=== PATIENT | female | born 1965 | race Caucasian/White ===

== ENCOUNTER 2019-01-05 21:13 | Inpatient (IN) | payer OTHER, MEDICAID ==
[2019-01-05] MEDS ORDERED: NS 2,100 ML IV ONE (21:22)
--- NOTE | 2019-01-05 21:22 | EDPHY ---
H & P Time Seen by Provider: 01/05/19 21:13 HPI/ROS: CHIEF COMPLAINT: Altered mental status HISTORY OF PRESENT ILLNESS: 54-year-old woman resident at [facility] for schizoaffective disorder. She was noted to have a seizure earlier today. She was diagnosed with the urinary tract infection yesterday. She arrives because over the past 2 hr her mental status is declined so she is really very sleepy. Patient has no complaints on arrival but further review of systems and history is unable to be completed because she is so sleepy and is difficult to arouse and difficult to get the answer questions. PAST MEDICAL HISTORY: From [facility] notes include irritable bowel, seizure disorder, hypothyroid, sciatica. Asthma, dementia, schizoaffective disorder, reflux disease, restless leg. Spinal stenosis, chronic pain Social history: Nursing facility resident General Appearance: Sleepy, will open eyes to voice. No spontaneous vocalizations. Eyes: No scleral icterus. Pupils reactive to light. ENT, Mouth: Dry mucous membranes. Respiratory: Normal respiratory effort, breath sounds equal, lungs are clear to auscultation. Cardiovascular: Regular rate and rhythm. Gastrointestinal: Abdomen is soft and non tender. Neurological: Face symmetric, patient does have spontaneous movement in all 4 extremities. She will withdraw to pain. She will answer questions with 2-3 word answers, has difficulty following commands. Skin: Warm and dry, no rashes. Musculoskeletal: No neck stiffness. Psychiatric: Unable because of altered mental status. Emergency Department course/MDM: Pre-hospital blood pressure 84 systolic. Oxygen saturation about 90% on room air. Differential considered including but not limited to seizure disorder the postictal state, infection or sepsis including pulmonary or urinary, other metabolic, medication related as she is on multiple medications. Plan for head CT, catheterized urine, chest x-ray, CBC chemistries. 2204: Urinalysis positive, likely altered mental status from urinary tract infection, possible pyelonephritis or urosepsis. IV fluids, IV antibiotics. Ceftriaxone 1 g IV and 30 mL/kilos IV normal saline fluid bolus. Did not develop hypotension and lactate is less than 2. CT head negative per Dr. Fink. Bon at 2212 to admit. Smoking Status: Never smoked Constitutional: Initial Vital Signs Temperature (C) 36.8 C 01/05/19 21:16 Heart Rate 91 01/05/19 21:16 Respiratory Rate 22 H 01/05/19 21:16 Blood Pressure 99/66 L 01/05/19 21:16 O2 Sat (%) 95 01/05/19 21:16 O2 Delivery Mode Nasal Cannula O2 (L/minute) 2 Allergies/Adverse Reactions: heparin Allergy (Verified 07/11/16 11:25) lithium Allergy (Verified 07/11/16 11:25) Penicillins Allergy (Verified 07/11/16 11:25) tetracycline Allergy (Verified 07/11/16 11:25) Home Medications: Medication Instructions Recorded Bisacodyl [Magic Bullet 10 mg] 10 mg [place] DAILY PRN 07/11/16 Fluticasone Propionate [24 Hour 2 spray EACHNARE BID 07/11/16 Allergy] Gabapentin [Neurontin 100 MG (*)] 200 mg PO BID 07/11/16 Haloperidol [HALOPERIDOL] 10 mg PO BID 07/11/16 LORazepam [Ativan (*)] 0.5 mg PO DAILY 07/11/16 Lactulose 30 ml PO BID 07/11/16 Levothyroxine [Synthroid 50 mcg 50 mcg PO DAILY06 07/11/16 (*)] Paliperidone Palmitate [Invega 234 mg IM Q21D 07/11/16 Sustenna (*)] Polyethylene Glycol 3350 [Miralax 17 gm PO DAILY 07/11/16 17 gm (*)] lamoTRIgine [Lamotrigine] 200 mg PO BID 07/11/16 Acetaminophen [Tylenol ES 500 mg 1,000 mg PO Q8H 01/05/19 (*)] Albuterol Sulfate [Albuterol 2 puffs IH Q4H PRN 01/05/19 Sulfate Hfa] Benztropine Mesylate 0.5 mg PO BID 01/05/19 Cefuroxime Axetil [Ceftin (*)] 250 mg PO BID 01/05/19 Cholecalciferol (Vitamin D3) 1,000 unit PO DAILY 01/05/19 [Vitamin D3] Clotrimazole/Betamethasone Dip 1 erik TP DAILY PRN 01/05/19 [Lotrisone Cream] Cyanocobalamin [Vitamin B12 (*)] 1,000 mcg PO DAILY 01/05/19 Desvenlafaxine [Desvenlafaxine ER] 50 mg PO DAILY 01/05/19 Etodolac [ETODOLAC] 200 mg PO DAILY 01/05/19 Etodolac [ETODOLAC] 400 mg PO BID 01/05/19 Mometasone/Formoterol [Dulera 100 2 puffs IH BID 01/05/19 Mcg/5 Mcg Inhaler] [place]-3 Acid Ethyl Esters 1 gm PO DAILY 01/05/19 Omeprazole 20 mg PO BID 01/05/19 Ondansetron [Zuplenz] 4 mg PO Q6H PRN 01/05/19 Oxymetazoline HCl [Sinus Relief] 2 puffs NS DAILY PRN 01/05/19 Propylene Glycol [Systane Balance] 1 drop EACHEYE TID 01/05/19 Saccharomyces Boulardii [FLORASTOR] 250 mg PO DAILY 01/05/19 Triamcinolone Acetonide [Triderm] 1 erik TP QID PRN 01/05/19 hydrOXYzine HCL [hydrOXYzine HCL 25 mg PO Q6 PRN 01/05/19 (RX)] Medical Decision Making - Diagnostics Imaging Results: Imaging Impressions Head CT 01/05/19 21:23 Impression: 1. No acute intracranial process. 2. Likely old white matter changes within the midbrain. Findings and recommendations discussed with VICKIE VEGA at 2205 hour, 2018. Chest X-Ray 01/05/19 21:24 Impression: Bibasilar subsegmental atelectasis and mild cardiomegaly. Imaging: Discussed imaging studies w/ call circuit worker Radiologist Critical Care Time: Critical care time spent by me, Dr. Vega, exclusively with the care of this patient was 45 minutes, exclusive of PA or GROUP SALES MANAGER time and exclusive of separate procedures. The organ system at risk was infectious and I ordered multiple diagnostics IV fluids IV antibiotics and supplemental oxygen to stabilize the patient and prevent worsening of the patient's condition. - Data Points Laboratory Results: Laboratory Results 01/05/19 21:23 01/05/19 21:23 01/05/19 01/05/19 01/05/19 21:30 21:30 21:23 WBC RBC Hgb POC Hgb Hct POC Hct MCV MCH MCHC RDW Plt Count MPV Neut % (Auto) Lymph % (Auto) [place] % (Auto) Eos % (Auto) Baso % (Auto) Nucleat RBC Rel Count Absolute Neuts (auto) Absolute Lymphs (auto) Absolute Monos (auto) Absolute Eos (auto) Absolute Basos (auto) Absolute Nucleated RBC Immature Gran % Immature Gran # PT INR APTT VBG Lactic Acid 1.4 mmol/L mmol/L (0.7-2.1) POC Sodium Sodium 132 mEq/L L mEq/L (135-145) POC Potassium Potassium 4.0 mEq/L mEq/L (3.5-5.2) POC Chloride Chloride 96 mEq/L L mEq/L (97-110) Carbon Dioxide 24 mEq/l mEq/l (22-31) POC Total CO2 Anion Gap 12 mEq/L mEq/L (6-14) POC BUN BUN 18 mg/dL mg/dL (7-23) Creatinine 1.1 mg/dL H mg/dL (0.6-1.0) POC Creatinine Estimated GFR 51 Glucose 132 mg/dL H mg/dL (70-100) POC Glucose Calcium 9.2 mg/dL mg/dL (8.5-10.4) Total Bilirubin 0.7 mg/dL mg/dL (0.1-1.4) Urine Color YELLOW Urine Appearance MODERATELY TURBID Urine pH 6.0 (5.0-7.5) Ur Specific [place] 1.005 (1.002-1.030) Urine Protein NEGATIVE (NEGATIVE) Urine Ketones NEGATIVE (NEGATIVE) Urine Blood 1+ H (NEGATIVE) Urine Nitrate NEGATIVE (NEGATIVE) Urine Bilirubin NEGATIVE (NEGATIVE) Urine Urobilinogen NEGATIVE EU EU (0.2-1.0) Ur Leukocyte Esterase 3+ H (NEGATIVE) Urine RBC 10-15 /hpf H /hpf (0-3) Urine WBC 50-182 /hpf H /hpf (0-3) Ur Epithelial Cells TRACE /lpf /lpf (NONE-1+) Urine Bacteria 1+ /hpf H /hpf (NONE SEEN) Urine Glucose NEGATIVE (NEGATIVE) 01/05/19 01/05/19 01/05/19 21:23 21:23 21:22 WBC 15.17 10^3/uL H 10^3/uL (3.80-9.50) RBC 4.04 10^6/uL L 10^6/uL (4.18-5.33) Hgb 12.6 g/dL g/dL (12.6-16.3) POC Hgb 13.6 gm/dL gm/dL (12.6-16.3) Hct 36.5 % L % (38.0-47.0) POC Hct 40 % % (38-47) MCV 90.3 fL fL (81.5-99.8) MCH 31.2 pg pg (27.9-34.1) MCHC 34.5 g/dL g/dL (32.4-36.7) RDW 13.3 % % (11.5-15.2) Plt Count 255 10^3/uL 10^3/uL (150-400) MPV 9.6 fL fL (8.7-11.7) Neut % (Auto) 82.3 % H % (39.3-74.2) Lymph % (Auto) 9.0 % L % (15.0-45.0) [place] % (Auto) 8.0 % % (4.5-13.0) Eos % (Auto) 0.0 % L % (0.6-7.6) Baso % (Auto) 0.2 % L % (0.3-1.7) Nucleat RBC Rel Count 0.0 % % (0.0-0.2) Absolute Neuts (auto) 12.50 10^3/uL H 10^3/uL (1.70-6.50) Absolute Lymphs (auto) 1.36 10^3/uL 10^3/uL (1.00-3.00) Absolute Monos (auto) 1.21 10^3/uL H 10^3/uL (0.30-0.80) Absolute Eos (auto) 0.00 10^3/uL L 10^3/uL (0.03-0.40) Absolute Basos (auto) 0.03 10^3/uL 10^3/uL (0.02-0.10) Absolute Nucleated RBC 0.00 10^3/uL 10^3/uL (0-0.01) Immature Gran % 0.5 % % (0.0-1.1) Immature Gran # 0.07 10^3/uL 10^3/uL (0.00-0.10) PT 14.6 SEC SEC (12.0-15.0) INR 1.19 H (0.83-1.16) APTT 40.5 SEC H SEC (23.0-38.0) VBG Lactic Acid POC Sodium 135 mEq/L mEq/L (135-145) Sodium POC Potassium 3.4 mEq/L mEq/L (3.3-5.0) Potassium POC Chloride 96 mEq/L L mEq/L (97-110) Chloride Carbon Dioxide POC Total CO2 25 mEq/L mEq/L (22-31) Anion Gap POC BUN 18 mg/dL mg/dL (7-23) BUN Creatinine POC Creatinine 1.2 mg/dL H mg/dL (0.6-1.0) Estimated GFR Glucose POC Glucose 135 mg/dL H mg/dL (70-100) Calcium Total Bilirubin Urine Color Urine Appearance Urine pH Ur Specific [place] Urine Protein Urine Ketones Urine Blood Urine Nitrate Urine Bilirubin Urine Urobilinogen Ur Leukocyte Esterase Urine RBC Urine WBC Ur Epithelial Cells Urine Bacteria Urine Glucose Medications Given: Discontinued Medications Sodium Chloride (Ns) 2,100 mls @ 4,200 mls/hr 30 ml/kg infuse over 30 min ( 2100 ml) IV EDNOW ONE PRN Reason: Protocol Stop: 01/05/19 21:51 Last Admin: 01/05/19 21:40 Dose: 2,100 mls Ceftriaxone Sodium 2 gm/ (Sodium Chloride) 50 mls @ 100 mls/hr IV EDNOW ONE PRN Reason: Protocol Stop: 01/05/19 22:40 Last Admin: 01/05/19 22:14 Dose: 50 mls Point of Care Test Results: Chemistry 01/05/19 21:22 POC Sodium 135 mEq/L mEq/L (135-145) POC Potassium 3.4 mEq/L mEq/L (3.3-5.0) POC Chloride 96 mEq/L L mEq/L (97-110) POC Total CO2 25 mEq/L mEq/L (22-31) POC BUN 18 mg/dL mg/dL (7-23) POC Creatinine 1.2 mg/dL H mg/dL (0.6-1.0) POC Glucose 135 mg/dL H mg/dL (70-100) ISTAT H&H 01/05/19 21:22 POC Hgb 13.6 gm/dL gm/dL (12.6-16.3) POC Hct 40 % % (38-47) Departure - Departure Disposition: [facility] Inpatient Acute Clinical Impression: Encephalopathy acute UTI (urinary tract infection) Qualifiers: Urinary tract infection type: acute pyelonephritis Qualified Code(s): N10 - Acute pyelonephritis Condition: Serious
[2019-01-05 21:36] LABS: PLATELET COUNT 255 10^3/uL (150-400)
[2019-01-05 21:46] LABS: INR 1.19 (0.83-1.16); PROTIME(PATIENT) 14.6 SEC (12.0-15.0)
[2019-01-05] MEDS ORDERED: cefTRIAXone 1 GM/DEXTROSE 1 GM/50 ML BAG IV ONE (22:13)
[2019-01-05] MEDS ORDERED: ONDANSETRON DISINTEGRATING 4 MG TAB PO PRN (22:22)
[2019-01-05] MEDS ORDERED: ACETAMINOPHEN 650 MG SUPP PR PRN (22:22)
[2019-01-05] MEDS ORDERED: ACETAMINOPHEN 325 MG TAB PO PRN (22:22)
[2019-01-05] MEDS ORDERED: ONDANSETRON 4 MG/2 ML VIAL IVP PRN (22:22)
[2019-01-05] MEDS ORDERED: LORazepam 2 MG/ML INJ IVP PRN (22:22)
[2019-01-05] MEDS ORDERED: NS 1,000 ML IV SCH (22:30)
--- NOTE | 2019-01-05 23:23 | CPEKG ---
Test Reason : OPEN Blood Pressure : / mmHG Vent. Rate : 091 BPM Atrial Rate : 091 BPM P-R Int : 160 ms QRS Dur : 079 ms QT Int : 366 ms P-R-T Axes : 041 -21 012 degrees QTc Int : 451 ms Sinus rhythm Inferior infarct, old Confirmed by Emmanuel Faye ([id number]) on 01/05/2019 11:22:57 PM Referred By: Emmanuel Faye Confirmed By:Emmanuel Faye
[2019-01-06] MEDS ORDERED: NS 1,000 ML IV ONE (00:49)
--- NOTE | 2019-01-06 02:57 | PDGENHP ---
History and Physical - Chief Complaint Altered mental status, seizure - History of Present Illness Source- patient is up tendon unable to provide history. She is snoring and exam. EMR was reviewed and case discussed with ED provider. HPI - this is a 54-year-old female with past medical history significant for schizoaffective disorder, seizure disorder, hypothyroidism, anxiety, personality disorder, dementia, and ED, GERD, RLS who presents to the emergency department today from [facility] after patient developed several hours of unresponsiveness. Patient was recently diagnosed with UTI and she was started on oral antibiotics yesterday. Is no notation if patient had been experiencing any fevers or chills. No reported nausea vomiting. Patient did have a seizure approximately 4:00 p.m. On no report of postictal status. At baseline patient is reported to be A&O x4 and ambulating and conversant. Unknown if patient received any sedatives on route however on ED nursing staff report patient has not received any medications other than normal saline and antibiotics. History Information - Allergies/Home Medication List Allergies/Adverse Reactions: heparin Allergy (Verified 07/11/16 11:25) lithium Allergy (Verified 07/11/16 11:25) Penicillins Allergy (Verified 07/11/16 11:25) tetracycline Allergy (Verified 07/11/16 11:25) Home Medications: Bisacodyl [Magic Bullet 10 mg] 10 mg MS DAILY PRN 07/11/16 [Last Taken Unknown] Fluticasone Propionate [24 Hour Allergy] 2 spray EACHNARE BID 07/11/16 [Last Taken Unknown] Gabapentin [Neurontin 100 MG (*)] 200 mg PO BID 07/11/16 [Last Taken Unknown] Haloperidol [HALOPERIDOL] 10 mg PO BID 07/11/16 [Last Taken Unknown] LORazepam [Ativan (*)] 0.5 mg PO DAILY 07/11/16 [Last Taken Unknown] Lactulose 30 ml PO BID 07/11/16 [Last Taken Unknown] Levothyroxine [Synthroid 50 mcg (*)] 50 mcg PO DAILY06 07/11/16 [Last Taken Unknown] Paliperidone Palmitate [Invega Sustenna (*)] 234 mg IM Q21D 07/11/16 [Last Taken 12/14/18] Polyethylene Glycol 3350 [Miralax 17 gm (*)] 17 gm PO DAILY 10/21/16 [Last Taken Unknown] lamoTRIgine [Lamotrigine] 200 mg PO BID 07/11/16 [Last Taken Unknown] Acetaminophen [Tylenol ES 500 mg (*)] 1,000 mg PO Q8H 01/05/19 [Last Taken Unknown] Albuterol Sulfate [Albuterol Sulfate Hfa] 2 puffs IH Q4H PRN 01/05/19 [Last Taken Unknown] Benztropine Mesylate 0.5 mg PO BID 01/05/19 [Last Taken Unknown] Cefuroxime Axetil [Ceftin (*)] 250 mg PO BID 01/05/19 [Last Taken Unknown] Cholecalciferol (Vitamin D3) [Vitamin D3] 1,000 unit PO DAILY 01/05/19 [Last Taken Unknown] Clotrimazole/Betamethasone Dip [Lotrisone Cream] 1 erik TP DAILY PRN 01/05/19 [ Last Taken Unknown] Cyanocobalamin [Vitamin B12 (*)] 1,000 mcg PO DAILY 01/05/19 [Last Taken Unknown ] Desvenlafaxine [Desvenlafaxine ER] 50 mg PO DAILY 01/05/19 [Last Taken Unknown] Etodolac [ETODOLAC] 200 mg PO DAILY 01/05/19 [Last Taken Unknown] Etodolac [ETODOLAC] 400 mg PO BID 01/05/19 [Last Taken Unknown] Mometasone/Formoterol [Dulera 100 Mcg/5 Mcg Inhaler] 2 puffs IH BID 01/05/19 [ Last Taken Unknown] [place]-3 Acid Ethyl Esters 1 gm PO DAILY 01/05/19 [Last Taken Unknown] Omeprazole 20 mg PO BID 01/05/19 [Last Taken Unknown] Ondansetron [Zuplenz] 4 mg PO Q6H PRN 01/05/19 [Last Taken Unknown] Oxymetazoline HCl [Sinus Relief] 2 puffs NS DAILY PRN 01/05/19 [Last Taken Unknown] Propylene Glycol [Systane Balance] 1 drop EACHEYE TID 01/05/19 [Last Taken Unknown] Saccharomyces Boulardii [FLORASTOR] 250 mg PO DAILY 01/05/19 [Last Taken Unknown ] Triamcinolone Acetonide [Triderm] 1 erik TP QID PRN 01/05/19 [Last Taken Unknown] hydrOXYzine HCL [hydrOXYzine HCL (RX)] 25 mg PO Q6 PRN 01/05/19 [Last Taken Unknown] I have personally reviewed and updated: family history, medical history, social history, surgical history - Past Medical History Additional medical history: Schizoaffective disorder, dementia, seizure disorder , hypothyroidism, IBS, neuralgia, asthma, hallucinations, major depressive disorder, anxiety, RLS, GERD, personality disorder with a baseline mentation A& O x4 - Surgical History Additional surgical history: Unable to clarify with the patient and did not identify in the chart. - Family History Additional family history: Unable to obtain as patient is somnolent. - Social History Smoking Status: Never smoked Additional social history: Patient resides in a [facility]. No known tobacco drugs or alcohol per EMR. Review of Systems Review of Systems: ROS: 10pt was reviewed & negative except for what was stated in HPI & below ( Unable to obtain from patient as she is somnolent.) Physical Exam Physical Exam: Selected Entries 01/05/19 21:16 Blood Pressure Automatic Method Heart Rate 91 Respiratory 22 H Rate O2 Sat (%) 95 Temperature (C) 36.8 C Blood Pressure 99/66 L Mean Arterial 77 Pressure (MAP) O2 (L/minute) 2 O2 Delivery Nasal Cannula Mode Temperature Oral Source Temp Pulse Resp BP Pulse Ox 36.6 C 65 17 83/57 L 96 01/05/19 22:07 01/06/19 01:10 01/06/19 01:10 01/06/19 01:10 01/06/19 01:10 O2 (L/minute) 1 Constitutional: no apparent distress, appears nourished, other (NAD. Patient lays in bed snoring softly. She does not stir in minimally resists me opening her eyelids. Appears older than stated age.) Eyes: PERRL, anicteric sclera, No scleral injection Ears, Nose, Mouth, Throat: poor dentition (Missing dentition), dry mucous membranes, other (No nasal discharge) Cardiovascular: regular rate and rhythym, no murmur, rub, or gallop, pulses symmetric bilaterally, No edema Peripheral Pulses: 2+: dorsalis-pedis (R), dorsalis-pedis (L) Respiratory: no respiratory distress, no rales or rhonchi, clear to auscultation , No rhonchi Gastrointestinal: normoactive bowel sounds, soft, non-tender abdomen (No apparent discomfort with palpation.), no palpable masses, distension (Abdomen distended but soft.) Genitourinary: weir in urethra (Dark urine present in fully.) Skin: warm, normal color, no rashes or abrasions, No rash Musculoskeletal: other Neurologic: other Psychiatric: other (Patient is somnolent does not move.) Lab Data & Imaging Review 01/05/19 21:23 01/05/19 21: WBC 15.17 10^3/uL (3.80-9.50) H 01/05/19 21: RBC 4.04 10^6/uL (4.18-5.33) L 01/05/19 21: Hgb 12.6 g/dL (12.6-16.3) 01/05/19 21: POC Hgb 13.6 gm/dL (12.6-16.3) 01/05/19 21: Hct 36.5 % (38.0-47.0) L 01/05/19 21: POC Hct 40 % (38-47) 01/05/19 21: MCV 90.3 fL (81.5-99.8) 01/05/19 21: MCH 31.2 pg (27.9-34.1) 01/05/19 21: MCHC 34.5 g/dL (32.4-36.7) 01/05/19 21: RDW 13.3 % (11.5-15.2) 01/05/19: Plt Count 255 10^3/uL (150-400) 01/05/19 21: MPV 9.6 fL (8.7-11.7) 01/05/19 21: Neut % (Auto) 82.3 % (39.3-74.2) H 01/05/19 21: Lymph % (Auto) 9.0 % (15.0-45.0) L 01/05/19 21: [place] % (Auto) 8.0 % (4.5-13.0) 01/05/19: Eos % (Auto) 0.0 % (0.6-7.6) L 01/05/19: Baso % (Auto) 0.2 % (0.3-1.7) L 01/05/19 21: Nucleat RBC Rel Count 0.0 % (0.0-0.2) 01/05/19 21: Absolute Neuts (auto) 12.50 10^3/uL (1.70-6.50) H 01/05/19 21: Absolute Lymphs (auto) 1.36 10^3/uL (1.00-3.00) 01/05/19 21: Absolute Monos (auto) 1.21 10^3/uL (0.30-0.80) H 01/05/19 21: Absolute Eos (auto) 0.00 10^3/uL (0.03-0.40) L 01/05/19 21: Absolute Basos (auto) 0.03 10^3/uL (0.02-0.10) 01/05/19 21: Absolute Nucleated RBC 0.00 10^3/uL (0-0.01) 01/05/19 21: Immature Gran % 0.5 % (0.0-1.1) 01/05/19 21: Immature Gran # 0.07 10^3/uL (0.00-0.10) 01/05/19 21: PT 14.6 SEC (12.0-15.0) 01/05/19 21:23 INR 1.19 (0.83-1.16) H 01/05/19 21: APTT 40.5 SEC (23.0-38.0) H 01/05/19 21: VBG Lactic Acid 1.4 mmol/L (0.7-2.1) 01/05/19 21:30 POC Sodium 135 mEq/L (135-145) 01/05/19 21: Sodium 132 mEq/L (135-145) L 01/05/19 21: POC Potassium 3.4 mEq/L (3.3-5.0) 01/05/19 21: Potassium 4.0 mEq/L (3.5-5.2) 01/05/19 21: POC Chloride 96 mEq/L (97-110) L 01/05/19 21: Chloride 96 mEq/L (97-110) L 01/05/19 21:23 Carbon Dioxide 24 mEq/l (22-31) 01/05/19 21:23 POC Total CO2 25 mEq/L (22-31) 01/05/19 21: Anion Gap 12 mEq/L (6-14) 01/05/19 21:23 POC BUN 18 mg/dL (7-23) 01/05/19 21: BUN 18 mg/dL (7-23) 01/05/19 21:23 Creatinine 1.1 mg/dL (0.6-1.0) H 01/05/19 21:23 POC Creatinine 1.2 mg/dL (0.6-1.0) H 01/05/19 21:22 Estimated GFR 51 01/05/19 21:23 Glucose 132 mg/dL (70-100) H 01/05/19 21: POC Glucose 135 mg/dL (70-100) H 01/05/19 21: Calcium 9.2 mg/dL (8.5-10.4) 01/05/19 21: Total Bilirubin 0.7 mg/dL (0.1-1.4) 01/05/19 21: Urine Color YELLOW 01/05/19 21:30 Urine Appearance MODERATELY TURBID 01/05/19 21:30 Urine pH 6.0 (5.0-7.5) 01/05/19 21:30 Ur Specific [place] 1.005 (1.002-1.030) 01/05/19 21:30 Urine Protein NEGATIVE (NEGATIVE) 01/05/19 21:30 Urine Ketones NEGATIVE (NEGATIVE) 01/05/19 21:30 Urine Blood 1+ (NEGATIVE) H 01/05/19 21:30 Urine Nitrate NEGATIVE (NEGATIVE) 01/05/19 21:30 Urine Bilirubin NEGATIVE (NEGATIVE) 01/05/19 21:30 Urine Urobilinogen NEGATIVE EU (0.2-1.0) 01/05/19 21:30 Ur Leukocyte Esterase 3+ (NEGATIVE) H 01/05/19 21:30 Urine RBC 10-15 /hpf (0-3) H 01/05/19 21:30 Urine WBC 50-182 /hpf (0-3) H 01/05/19 21:30 Ur Epithelial Cells TRACE /lpf (NONE-1+) 04/17/19 21:30 Urine Bacteria 1+ /hpf (NONE SEEN) H 01/05/19 21:30 Urine Glucose NEGATIVE (NEGATIVE) 01/05/19 21:30 Imaging Review: Head WO IV Contrast History: altered, seizure. Comparison: None available. Technique: Dose reduction techniques were utilized. Findings: There is no acute large vessel ischemic infarct, hemorrhage, or extra -axial fluid collection. Likely white matter changes are seen within the midbrain on series 4 , image 49. There is no midline shift and the basal cisterns are not effaced. The ventricles are normal in size and configuration for the patient's stated age. There is no displaced skull fracture. The paranasal sinuses and mastoid air cells are clear with the exception of a small amount of fluid within the ethmoidal air cells. Impression: 1. No acute intracranial process. 2. Likely old white matter changes within the midbrain. Findings and recommendations discussed with VICKIE VEGA at 2205 hour, 2018. Dictated By: Dre Fink MD Visualized and Interpreted Chest x-ray results: Yes Visualized and Interpreted imaging results: Yes Assessment & Plan Assessment: this is a 54-year-old female with past medical history significant for schizoaffective disorder, seizure disorder, hypothyroidism, anxiety, personality disorder, dementia, and ED, GERD, RLS who presents to the emergency department today from [facility] after patient developed several hours of unresponsiveness #Encephalopathy acute (Acute) - cause for patient's acute encephalopathy multifactorial including potential for seizure versus infectious versus polypharmacy. Patient is protecting her airway at this time. Will monitor her closely on [facility] you floor until such time she wakes up. She is snoring softly. The shortly arrival to floor RN reported that patient was started this stir with verbal and physical stimulation. Hold off on all sedatives and antipsychotics until patient's mentation does improve. However will order for Ativan p.r.n. In case of seizures. #UTI (urinary tract infection) (Acute) - continue Rocephin Q 24 hr. Await urine culture. #sepsis without acute organ dysfunction - blood cultures pending. Patient qualifies with a leukocytosis, #hypotension - likely component of volume depletion. Patient was responsive initially to IV fluids in the ED. She did receive a 30 mL/kg bolus Patient does appear slightly dry. She does have some acute kidney injury likely prerenal in nature. Her urine does appear dark. Continue with IV fluids bolus p.r.n.. #seizure/seizure disorder - Ativan available p.r.n.. Seizure precautions. #hyponatremia - likely secondary to hypovolemia in setting of hypotension. IV fluid hydration as noted above. #RENETTA - likely pre renal in nature is patient's baseline creatinine appears to be 0.8. Continue with IV fluid hydration patient does appear to be dry in her urine remains medium to dark colored. # mild hyperglycemia - this is a nonfasting lab. Will plan to repeat BMP again in the morning Chronic medical issues - resume home medications when safe for patient to tolerate p.o.. #Hypothyroidism #Neuralgia #Asthma #Dementia #IBS #Major depressive disorder #Dementia with hallucination #Schizoaffective disorder #GERD #Personality disorder #Anxiety #Restless leg syndrome FEN - IV fluid hydration as noted above. Electrolytes are adequate replace if needed. Patient currently NPO until her mentation improves such time that it is safe for her to take in p.o.. PPX-SCDs. Anticoagulation if patient should stay additional day. Disposition-patient admitted inpatient status on ST you floor for close cardiopulmonary monitoring in setting of sepsis, hypotension, encephalopathy. Cor status per patient's most form accompanying her is full.
[2019-01-06 05:29] LABS: PLATELET COUNT 226 10^3/uL (150-400)
--- NOTE | 2019-01-06 10:12 | PDMN ---
Medical Necessity Medical necessity: Pt meets inpt criteria per MD order and MCG M-300, Urinary Tract Infection, with severe AMS and ARF. 54 y/o recently diagnosed w/UTI and started on oral ABX's as outpt admitted now w/acute encephalopathy/ unresponsiveness, UTI, sepsis, hypotension, RENETTA, hyponatremia, and seizure ( earlier today). PMHx includes seizure do, schizoaffective do, anxiety, personality do, dementia, RLS, GERD, and hypothyroidism. SDU care, NPO, IVF, IV ABX's, ongoing med nec monitoring/treatment, anticipate>2MN.
[2019-01-06] MEDS ORDERED: CLOTRIMAZOLE/BETAMET DIPROP 15 GM CRTUBE TP PRN (10:25)
[2019-01-06] MEDS ORDERED: ALBUTEROL 60 PUFFS/8 GM MDI IH PRN (10:25)
[2019-01-06] MEDS ORDERED: TRIAMCINOLONE 0.5% 15GM CREAM TP PRN (10:25)
[2019-01-06] MEDS ORDERED: hydrOXYzine HCL 25 MG TAB PO PRN (10:25)
[2019-01-06] MEDS ORDERED: BISACODYL 10 MG SUPP PR PRN (10:25)
[2019-01-06] MEDS ORDERED: ONDANSETRON DISINTEGRATING 4 MG TAB PO PRN (10:25)
[2019-01-06] MEDS ORDERED: GABAPENTIN 100 MG CAP PO SCH (10:30)
[2019-01-06] MEDS ORDERED: DESVENLAFAXINE 50 MG PO SCH (10:30)
[2019-01-06] MEDS ORDERED: LORazepam 0.5 MG TAB PO SCH (10:30)
[2019-01-06] MEDS ORDERED: LEVOTHYROXINE 50 MCG TAB PO SCH (10:30)
[2019-01-06] MEDS ORDERED: HALOPERIDOL 10 MG TAB PO SCH (10:30)
[2019-01-06] MEDS ORDERED: ACETAMINOPHEN 500 MG TAB PO SCH (10:30)
[2019-01-06] MEDS ORDERED: BENZTROPINE MESYLATE 1 MG TAB PO SCH (10:45)
[2019-01-06] MEDS ORDERED: lamoTRIgine 100 MG TAB PO SCH (11:00)
--- NOTE | 2019-01-06 11:13 | ASMTCASEMG ---
Living Arrangements What is your living Answers: With Other (Not Family) arrangement? Who do you live with? Type Of Residence What kind of residence do Answers: Detention Facility you live in? Type of Residence Facility Name Notes: Patient lives at [facility] Discharge Plan Comments Coordination Status Comments Notes: Patient is a 54yo single female with hx of schizoaffective disorder, seizure disorder, hypothyroidism, anxiety, personality disorder, dementia who presents to [facility] after several hours of unresponsiveness. Patient lives at [facility]. She is being admitted for encephalopathy, UTI, sepsis, hypotension, seizure,hyponatremia, and chronic medical issues. No therapies ordered. Patient will most likely return to [facility] at discharge. CM will follow. Date Signed: 01/06/2019 11:13 AM Electronically Signed By:Lisha Oates LCSW
[2019-01-06 11:46] VITALS: BP 128/77
--- NOTE | 2019-01-06 12:20 | PDIAF ---
- Diagnosis Diagnosis: Return to previous level of care at [facility]. Code Status: Full Code - Medication Management Additional Medication Instructions: No changes. Discharge Medications: electronically signed and located in the Home Medication List. PICC Care - Routine: N/A - Orders Rios: Not applicable Additional Instructions: Discussed with neurologist - no change in anti-seizure medications. Continue antibiotics for UTI. Safe for return to [facility]. Routine follow up with her neurologist for seizure management. - Follow Up Care Current Providers and Referrals: Patient,NotPresent [Primary Care Provider] - As per Instructions
--- NOTE | 2019-01-06 12:21 | PDDCSUM ---
Discharge Summary Discharge Summary: Date of Admission: 01/05/2019 Date of Discharge: 01/06/2019 Studies: head CT Discharge Diagnoses: 1. Seizure with post-ictal period/acute metabolic encephalopathy 2. Cystitis 3. Seizure disorder 4. Hypotension due to hypovolemia, resolved 5. Acute kidney injury, resolved 6. Hyponatremia, resolved 7. Leukocytosis 8. Schizoaffective disorder, personality disorder, depression 9. Hypothyroidism 10. IBS 11. Restless leg syndrome 12. Aphthous ulcer on tongue Brief Hospital Course: 54yo F with history of seizures and recently diagnosed with UTI presented from [facility] after seizure with subsequent post-ictal period. She was not unresponsive but remained quite somnolent and thus was brought to the ED. Head CT was unremarkable. She slowly woke up and was at her baseline mentation by early the next morning. She reports having seizures approximately every 3-4 months. It is felt that this seizure was likely precipitated by her infection. I discussed with our neurology team who did not recommend any changes to her anti-seizure medications. She is being appropriate treated with cefuroxime for her UTI; I reviewed with pharmacy and this medication does not lower seizure threshold. She was discharged back to [facility] in stable condition. Of note, she did not have sepsis on arrival, contrary to admit H&P. Of note, she was mildly hypotensive with RENETTA and mild hyponatremia on admission. All of these resolved with IV fluid administration and her BP remained stable at time of discharge. She was tolerating PO. Medications: Please refer to EMR for complete list. No changes were made this admission. Follow Up Plan: I recommend she see her outpatient neurologist in 1-2 weeks. Physical Exam: Vitals and telemetry reviewed, stable. Alert and oriented, rrr, lungs clear, abdomen soft and nt, no rashes, no edema.
--- NOTE | 2019-01-06 13:15 | ASMTLACE ---
ESTHER Length of stay for Answers: 1 day current admission Acuity / Level of Answers: Yes Care: Did the patient have an inpatient admission? Comorbidities - select Answers: Other Notes: seizure disorder all that apply # of Emergency department Answers: 1-2 visits in the last 6 months Social determinants Answers: Mental health diagnosis (anxiety, depression, pers onality disorders, etc.) Score: 9 Date Signed: 01/06/2019 01:14 PM Electronically Signed By:Lisha Oates LCSW
--- NOTE | 2019-01-06 13:37 | ASMTDCNOTE ---
Case Management Discharge Discharge Order Complete? Answers: Yes Patient to Obtain Answers: Other Notes: [facility] Medications Transportation Arranged Answers: Other Notes: [facility] van Transport will Pick (Date 01/06/2019 12:00 AM & Time) Faxed Final Orders Answers: Yes Notes: [facility] Agency/Facility Transfer Answers: Yes Notes: [facility] Report Printed & Faxed to Receiving Agency Family Notified Answers: Yes Notes: [facility] Discharge Comments Notes: Patient is discharging back to her home facility, [facility] today. [facility] will send the [facility] van for the patient at 2:30 PM. Discharge summaries have been forwarded [employer] to [facility]. Patient's nurse will call report to [phone], [facility]'s report line. No further needs. Date Signed: 01/06/2019 01:37 PM Electronically Signed By:Lisha Oates LCSW
--- NOTE | 2019-01-06 13:47 | ASDISCHSUM ---
Discharge Information Plan Status:SNF Medically Cleared to Leave:01/06/2019 Discharge Date:01/06/2019 CM D/C Disposition:Group Home Facility ADT D/C Disposition:Group Home Facility Projected Discharge Date:01/06/2019 11:00 AM Transportation at D/C:Wheelchair Van Discharge Delay Reason: Follow-Up Date:01/06/2019 11:00 AM Discharge Slot:2 - 12:01 pm - 18:00 pm Final Diagnosis:Encephalopathy Placement Information Referral Type:*Detention/SNF Referral ID:[id number] Provider Name:[facility] Address 1:[address] Address 2: City:[place] Selection Factors: State:[place] Patient Contact Information Contact Name:YOLA Relationship:Mother Address:[address] City:[place] Alternate Phone: State/Zip Code:[place] [address] Email: Financial Information Financial Class:Medicare Advantage Plans Primary Plan Desc:[employer] MED[employer]ARE ADV IP Primary Plan Number:[id number] Secondary Plan Desc:[place] Secondary Plan Number:[id number] Assessment Information LACE LACE Length of stay for Answers: 1 day current admission Acuity / Level of Answers: Yes Care: Did the patient have an inpatient admission? Comorbidities - select Answers: Other Notes: seizure disorder all that apply # of Emergency department Answers: 1-2 visits in the last 6 months Social determinants Answers: Mental health diagnosis (anxiety, depression, pers onality disorders, etc.) Score: 9 Date Signed: 01/06/2019 01:14 PM Electronically Signed By:Lisha Oates LCSW [facility] Initial CM Assessment Living Arrangements What is your living Answers: With Other (Not Family) arrangement? Who do you live with? Type Of Residence What kind of residence do Answers: Group Home Facility you live in? Type of Residence Facility Name Notes: Patient lives at [facility] Discharge Plan Comments Coordination Status Comments Notes: Patient is a 54yo single female with hx of schizoaffective disorder, seizure disorder, hypothyroidism, anxiety, personality disorder, dementia who presents to [facility] after several hours of unresponsiveness. Patient lives at [facility]. She is being admitted for encephalopathy, UTI, sepsis, hypotension, seizure,hyponatremia, and chronic medical issues. No therapies ordered. Patient will most likely return to [facility] at discharge. CM will follow. Date Signed: 01/06/2019 11:13 AM Electronically Signed By:Lisha Oates LCSW Case Management Discharge Plan Note Case Management Discharge Discharge Order Complete? Answers: Yes Patient to Obtain Answers: Other Notes: [facility] Medications Transportation Arranged Answers: Other Notes: [facility] van Transport will Pick (Date 01/06/2019 12:00 AM & Time) Faxed Final Orders Answers: Yes Notes: [facility] Agency/Facility Transfer Answers: Yes Notes: [facility] Report Printed & Faxed to Receiving Agency Family Notified Answers: Yes Notes: [facility] Discharge Comments Notes: Patient is discharging back to her home facility, [facility] today. [facility] will send the [facility] van for the patient at 2:30 PM. Discharge summaries have been forwarded [employer] to [facility]. Patient's nurse will call report to [phone], [facility]'s report line. No further needs. Date Signed: 01/06/2019 01:37 PM Electronically Signed By:YAKOV NowakW Intervention Information
[2019-01-06] MEDS ORDERED: (Propylene Glycol [Systane Balance] 1 DROP) EACHEYE SCH (16:00)
[2019-01-06] MEDS ORDERED: OMEPRAZOLE 20 MG PO SCH (21:00)
[2019-01-06] MEDS ORDERED: LACTULOSE 20 GM/30 ML UDCUP PO SCH (21:00)
[2019-01-06] MEDS ORDERED: DULERA IH SCH (21:00)
[2019-01-07] MEDS ORDERED: POLYETHYLENE GLYCOL 3350 17 GM PKT PO SCH (09:00)
== END 2019-01-06 15:00 | DRG 101 ==
LOC: EDUNIT# → F2N 22:47
PROVIDERS: ADMIT Family Medicine; ATTEND Family Medicine
DX: G40.909 Epilepsy, unspecified, not intractable, without status epilepticus (principal); E87.1 Hypo-osmolality and hyponatremia; N17.9 Acute kidney failure, unspecified; F25.9 Schizoaffective disorder, unspecified; N30.90 Cystitis, unspecified without hematuria; E03.9 Hypothyroidism, unspecified; G25.81 Restless legs syndrome; F32.9 Major depressive disorder, single episode, unspecified; J45.909 Unspecified asthma, uncomplicated; F03.90 Unspecified dementia, unspecified severity, without behavioral disturbance, psychotic disturbance, mood disturbance, and anxiety; K21.9 Gastro-esophageal reflux disease without esophagitis; G89.29 Other chronic pain
CPT/HCPCS: 82435-PO; 82565-PO; 82947-PO; 84132-PO; 84295-PO; 84520-PO; 85014-ER; 96374; J0696